=== PATIENT | male | born 1975 | race Two or more races ===

== ENCOUNTER 2024-11-21 03:37 | Inpatient (IN) | payer MEDICAID, SELFPAY ==
[2024-11-21] VITALS (12 sets, daily range): BP systolic 106–127; BP diastolic 78–92; PULSE 59–88; RESP 16–22; TEMP 36.1–36.9; O2SAT 94–99; BMI 29.7
--- NOTE | 2024-11-21 03:45 | PC.NURSE ---
PT TAKEN TO E 2 FOR STAT EKG.
--- NOTE | 2024-11-21 03:46 | EKG_ITS ---
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
--- NOTE | 2024-11-21 03:47 | EDNOTE_ITS ---
ED Chest Pain RME/HPI General Chief Complaint: Chest Pain Stated Complaint: CHEST PAIN Time Seen by Provider: 11/21/24 03:50 Arrival date/time: 11/21/24 03:37 RME / HPI RME / HPI narrative: This section includes all my notes and documentations, including HPI, PE, and ED course. Yusuf Pappas MD HPI: 49 y/o male presents with severe chest pain x 30 minutes. Diaphoretic. No shortness of breath. No obvious cause. Normally healthy with no chronic medications. No leg pain or swelling. No nausea or vomiting. No palpitations. No unusual malaise or fatigue. No other complaints. ROS: All negative except as documented in HPI. Physical Exam: General: Alert and oriented. In severe pain. Eyes: Conjunctivae and lids clear. ENT: No nasal congestion. Neck: Supple. Heart: RRR. Lungs: No respiratory distress. Good air movement. No rhonchi, wheezing, rales. Chest: Palpation doesn't reproduce his pain. Abdomen: Soft and nontender. Skin: Warm and dry. Neuro: Alert and oriented X 3. My interpretation of the EKG: NSR (68 bpm) with no ST-T changes. Aspirin 324 mg given. Nitroglycerin sublingual 0.4 mg given. No improvement noted. Toradol 30 mg IV given. Significant improvement noted. At 6 AM on 11/21/2024, the care of the patient was transferred to Dr. Montano with diagnostic tests pending, including CT scans. Yusuf Pappas MD Related Data Allergies Allergy/AdvReac Type Severity Reaction Status Date / Time NKA* Allergy Uncoded 11/21/24 03:46 Review of Systems Review of Systems Systems Reviewed: All systems reviewed, normal except as documented Past Medical History Surgical History SURGICAL: Positive Knee Sx (LEFT) ED Exam Narrative Physical exam: Refer to HPI Course Course Course Narrative: CXR is ordered for determining the etiology of shortness of breath. Quality Measures none Orders Category Date Time Status CT Screening NOW Care 11/21/24 03:48 Active EKG (ED ONLY) *Do not use* NOW Care 11/21/24 03:46 Completed Saline [Insert IV] NOW Care 11/21/24 03:[address] angio chest abdomen pelvis Stat Exams 11/21/24 03:48 Ordered EKG (ED Only) Stat Exams 11/21/24 03:46 Ordered XR chest 1V portable Stat Exams 11/21/24 03:47 Taken BMP [Basic Metabolic Panel] Stat Lab 11/21/24 04:03 Completed BNP [B-Type Natriuretic Peptide] Stat Lab 11/21/24 04:03 Completed CBC Stat Lab 11/21/24 04:03 Completed D-Dimer Stat Lab 11/21/24 04:03 Completed Free T4 (Free Thyroxine) Stat Lab 11/21/24 04:03 Completed Liver Panel Stat Lab 11/21/24 04:03 Completed Magnesium Stat Lab 11/21/24 04:03 Completed TSH [Thyroid Stimulating Hormone] Stat Lab 11/21/24 04:03 Completed Troponin I Stat Lab 11/21/24 04:03 Completed Aspirin Chew Med 11/21/24 03:46 Discontinued 324 mg PO X1 ONE Ketorolac Inj [Toradol Inj] Med 11/21/24 04:04 Discontinued 30 mg IVP X1 ONE Morphine Inj Med 11/21/24 04:30 Discontinued 2 mg IVP X1 ONE Nitroglycerin [Nitrostat 1/150] Med 11/21/24 03:46 Discontinued 0.4 mg SL X1 ONE Vital Signs Vital signs: Vital Signs Temperature 97.4 F 11/21/24 03:47 Pulse Rate 74 11/21/24 03:47 Respiratory Rate 22 H 11/21/24 03:47 Blood Pressure 124/87 H 11/21/24 03:47 Chest Pain MDM Narrative MDM Narrative:: Scribe Attestation: Sidra Kulkarni am scribing for and in the presence of Dr. Pappas. Provider Notation: Although this document has been carefully reviewed, there may still be some phonetic and other typographical errors.? These errors are purely grammatical due to imperfections in the software program and should not be construed in any way to? compromise the substance of the patient's medical care during this visit. 49 y/o male presents with severe substernal chest pain x 30 minutes. No other complaints. Patient data External records reviewed:: [facility] previous records (No prior ED records available for review.) Clinical information provided by:: patient Social determinants that could affect healthcare access:: none Patient has the following chronic illnesses:: None reported How is presenting disease/condition affected by chronic disease/condition?: no chronic disease Evaluation data The following diagnostics were reviewed and interpreted by me:: lab results, radiology exam(s) and EKG tracing(s) (My interpretation of the EKG: NSR (68 bpm) with no ST-T changes. Yusuf Pappas MD) Lab and/or radiology exams considered but not ordered:: None Interpretation Summary: Complete diagnostic tests are pending. Medications / Prescriptions Medications or Prescriptions considered but not ordered:: None Medication administrations:: Medication Administration History Discontinued Medications Aspirin (Aspirin 81 Mg Chew) 324 mg PO X1 ONE Stop: 11/21/24 03:47 Last Admin: 11/21/24 03:54 Dose: 324 mg Documented By: DIYA Ketorolac Tromethamine (Ketorolac Inj 30 Mg/Ml Vial) 30 mg IVP X1 ONE Stop: 11/21/24 04:05 Last Admin: 11/21/24 04:10 Dose: 30 mg Documented By: DIYA Morphine Sulfate (Morphine Sulf Inj 10 Mg/Ml Vial) 2 mg IVP X1 ONE Stop: 11/21/24 04:31 Nitroglycerin (Nitroglycerin 0.4 Mg Subl Btl #25) 0.4 mg SL X1 ONE Stop: 11/21/24 03:47 Last Admin: 11/21/24 03:54 Dose: 0.4 mg Documented By: DIYA Aspirin, Nitrostat, Toradol, Morphine Consultations Consultation(s) initiated? (list below): No Diagnosis Chest Pain Differential Diagnosis: fracture of rib, pneumothorax, stable angina, unstable angina pectoris, atypical chest pain, st elevation myocardial infarction, costochondritis, chest pain, biliary colic and other (Aortic dissection) Most likely diagnosis given after review of the tests above:: Chest pain of unclear etiology Admission Indicated Admission indicated?: not indicated Explain why admission is indicated or not indicated:: Complete diagnostic tests are pending. Admission Request Was there a request for admission?: No Disposition Plan Disposition Plan: other (specify) (Sign-out to Dr. Montano.) Discharge Plan Prescriptions/Referrals Referrals: No Primary/Family,Physician [Primary Care Provider] - In 1 week Problem List Clinical Impression: Chest pain Patient/Caregiver Discharge Instructions Print Language: Finnish
--- NOTE | 2024-11-21 03:47 | XR_ITS ---
Examination: AP chest single view TECHNIQUE: AP portable upright chest single view Date and time: November 21, 2024 0354 hours INDICATIONS: Onset chest pain today. FINDINGS: Normal heart size. Lungs are clear. The osseous structures are intact IMPRESSION: No active disease
--- NOTE | 2024-11-21 03:48 | XR_ITS ---
Examination: CTA chest, with intravenous contrast. CTA abdomen, with intravenous contrast. CTA pelvis, with intravenous contrast. 2-D sagittal and coronal reconstructions. 3-D reconstructions. Date and time of exam: November 21, 2024 0619 hours INDICATIONS: Chest and severe abdominal pain onset today CTDI vol (mgy) 9.16 DLP (MGycm) 703 Technique: Multiple CTA images, 2.0 mm slice thickness, obtained chest, abdomen, pelvis, with the high-resolution 64 slice scanner. 100 cc Isovue-370 is administered intravenously. Sagittal and coronal 2-D reconstructions are obtained. 3-D reconstructions, angiographic images are obtained. 3-D postprocessing, including vascular maximum intensity projections. Low dose protocols were performed. One or more of the following dose reduction techniques were used; automated exposure control, adjustment of the mA and/or KV according to patient size, use of iterative reconstruction technique. Findings: No thoracic aortic aneurysmal dilatation No pulmonary artery filling defects No paratracheal tracheobronchial or bronchopulmonary adenopathy No pneumonia, pulmonary edema or pleural disease Severe diffuse fatty infiltration throughout the liver No gallstones Spleen not enlarged Lower wall of the esophagus is thickened and there is mucosal thickening in the stomach No pancreatic edema Normal adrenal glands No renal or ureteral calculi, no hydronephrosis Aorta normal size 27 mm fat-containing umbilical hernia Normal appendix Colonic diverticulosis No diverticulitis Urinary bladder intact No prostatomegaly Moderate osteopenia IMPRESSION: Negative for pulmonary artery emboli No pneumonia, pulmonary edema or pleural disease. Significant thickening of the lateral wall of the esophagus, consider reflux esophagitis, esophageal lesion not excluded Prominent gastritis pattern, consider esophagram or upper GI series follow-up Severe diffuse fatty infiltration throughout the liver. Normal appendix No bowel obstruction or diverticulitis
[2024-11-21] MEDS: NITROGLYCERIN 0.4 MG SUBL BTL #25 SL (03:54)
[2024-11-21] MEDS: ASPIRIN 81 MG CHEW 324 MG PO (03:54)
[2024-11-21] MEDS: KETOROLAC INJ 30 MG/ML VIAL IVP (04:10)
[2024-11-21 04:11] LABS: Basophils # (Auto) 0.1 Thou/mm3 (0.0-0.2); Basophils % (Auto) 1 % (0-2.5); Eosinophils # (Auto) 0.1 Thou/mm3 (0.0-0.5); Eosinophils % (Auto) 1 % (0-10); Hematocrit 41.4 % (41.0-53.0); Hemoglobin 14.7 g/dL (13.5-16.0); Immature Granulocytes % (Auto) 0 % (0-0); Immature Granulocytes Auto 0.01 Thou/mm3 (0.00-0.00); Lymphocytes # (Auto) 3.1 Thou/mm3 (1.0-4.8); Lymphocytes % (Auto) 43 % (10-50); Mean Corpuscular HGB Conc 35.5 g/dl (31.0-37.0); Mean Corpuscular Volume 93 fL (80-100); Monocytes # (Auto) 0.7 Thou/mm3 (0.0-0.8); Monocytes % (Auto) 10 % (0-12); Neutrophils # (Auto) 3.3 Thou/mm3 (1.8-7.7); Neutrophils % (Auto) 45 % (37-80); Nucleated Red Blood Cell % 0 /100 WBC (0); Platelet Count 284 Thou/mm3 (140-440); Red Blood Count 4.46 Miln/mm3 (4.50-5.90); White Blood Count 7.3 Thou/mm3 (3.8-10.6)
[2024-11-21 04:29] LABS: Alanine Aminotransferase 151 U/L (10-49); Albumin, Serum 4.7 gm/dL (3.5-5.0); Alkaline Phosphatase 53 U/L (46-116); Anion Gap 14 (7-16); B-Type Natriuretic Peptide < 20 pg/mL (0-100); BUN/Creatinine Ratio 8 Ratio (12-20); Bilirubin,Direct 0.1 mg/dL (0.0-0.3); Bilirubin,Total 0.4 mg/dL (0.3-1.2); Blood Urea Nitrogen 8 mg/dL (9-23); Calcium 9.7 mg/dL (8.3-10.6); Carbon Dioxide 22.4 mMol/L (20.0-31.0); Chloride 104 mMol/L (98-107); Estimated Creatinine Clearance 95.8 mL/min (>60); Free T4 (Free Thyroxine) 1.48 ng/dL (0.89-1.76); Glucose 149 mg/dL (74-106); Magnesium 1.8 mg/dL (1.6-2.6); Osmolality,Calculated 280 (275-295); Potassium 3.6 mMol/L (3.4-5.1); Sodium 140 mMol/L (136-145); Thyroid Stimulating Hormone 1.77 uIU/mL (0.55-4.78); Total Protein 7.3 gm/dL (5.7-8.2); Troponin I < 0.020 ng/mL (0.0-0.045); eGFR > 60 See Note
[2024-11-21 04:31] LABS: D-Dimer < 250 ng/mL (<600)
[2024-11-21] MEDS: MORPHINE SULF INJ 10 MG/ML VIAL 2 MG IVP (05:57)
--- NOTE | 2024-11-21 07:36 | PD.EDADDENDU ---
Emergency Room Addendum Addendum Narrative: 0600: Care assumed from Dr. Pappas, the previous shift emergency physician. Past medical, surgical, social and family history reviewed. Vitals and home medications reviewed. I will assume the care of the patient at this time, pending CT reports and final disposition. Please refer to the emergency department record for history and examination from initial visit.?The following addendum documentation note is intended to reflect any pending information, findings, or radiology results not included in the patient?s initial chart. 0812: CT report findings are suggestive of gastritis/GERD. At this time pending delta troponin. 0825: Delta troponin 2.934 ng/mL. Discussed results with the patient and plan for cardiology consult and admission for further evaluation and treatment. Patient is amenable to admission. Repeat EKG 11/22/2023 @ 08:44 AM. Sinus rhythm, rate 60, mild ST elevation in V2 and V3. 0850: I spoke with mixer and blender Dr. Samano. Discussed patient?s HPI, PMHx, lab and radiology results. Treatment plan was discussed. Agrees to consult. I spoke with resident working with Dr. Lara. Discussed patients PMHx, HPI, ED course, exam findings, labs, and radiology results. The hospitalist agree to accept the patient for admission. RADIOLOGY Ordering Physician: Yusuf Pappas MD Date of Service: 11/21/24 Procedure(s): CT angio chest abdomen pelvis Accession Number(s): [id number] cc: Yusuf Pappas MD; Jose E Zavala MD; NO PRIMARY/FAMILY,PHYSICIAN~ Examination: CTA chest, with intravenous contrast. CTA abdomen, with intravenous contrast. CTA pelvis, with intravenous contrast. 2-D sagittal and coronal reconstructions. 3-D reconstructions. Date and time of exam: November 21, 2024 0619 hours INDICATIONS: Chest and severe abdominal pain onset today CTDI vol (mgy) 9.16 DLP (MGycm) 703 Technique: Multiple CTA images, 2.0 mm slice thickness, obtained chest, abdomen, pelvis, with the high-resolution 64 slice scanner. 100 cc Isovue-370 is administered intravenously. Sagittal and coronal 2-D reconstructions are obtained. 3-D reconstructions, angiographic images are obtained. 3-D postprocessing, including vascular maximum intensity projections. Low dose protocols were performed. One or more of the following dose reduction techniques were used; automated exposure control, adjustment of the mA and/or KV according to patient size, use of iterative reconstruction technique. Findings: No thoracic aortic aneurysmal dilatation No pulmonary artery filling defects No paratracheal tracheobronchial or bronchopulmonary adenopathy No pneumonia, pulmonary edema or pleural disease Severe diffuse fatty infiltration throughout the liver No gallstones Spleen not enlarged Lower wall of the esophagus is thickened and there is mucosal thickening in the stomach No pancreatic edema Normal adrenal glands No renal or ureteral calculi, no hydronephrosis Aorta normal size 27 mm fat-containing umbilical hernia Normal appendix Colonic diverticulosis No diverticulitis Urinary bladder intact No prostatomegaly Moderate osteopenia IMPRESSION: Negative for pulmonary artery emboli No pneumonia, pulmonary edema or pleural disease. Significant thickening of the lateral wall of the esophagus, consider reflux esophagitis, esophageal lesion not excluded Prominent gastritis pattern, consider esophagram or upper GI series follow-up Severe diffuse fatty infiltration throughout the liver. Normal appendix No bowel obstruction or diverticulitis Dictated By:Jose E Zavala MD Signed By:<Electronically signed by Jose E Zavala MD in [place]>11/21/24 0718
[2024-11-21] MEDS: FAMOTIDINE INJ 10 MG/ML VIAL 2 ML 20 MG IVP (08:22)
[2024-11-21 08:23] LABS: Troponin I 2.934 ng/mL (0.0-0.045)
[2024-11-21] MEDS: NITROGLYCERIN OINT 2% 1 INCH PACKET TOP (08:48)
[2024-11-21] MEDS: CLOPIDOGREL BISULFATE 75 MG TABLET 300 MG PO (08:49)
[2024-11-21] MEDS: HEPARIN SOD INJ 5000 UNIT/ML VIAL IV (08:49)
[2024-11-21 09:21] LABS: Partial Thromboplastin Time 25.4 Seconds (22.0-36.0)
[2024-11-21 09:45] LABS: Cardiac Risk Estimate 2.8 RATIO (4.0-6.7); Cholesterol 207 mg/dL (132-200); HDL Cholesterol 74 mg/dL (40-60); LDL Cholesterol,Calculated 118 mg/dL (0-130); Triglycerides 77 mg/dL (30-150)
[2024-11-21] MEDS: PANTOPRAZOLE INJ 40 MG VIAL IVP (10:33)
[2024-11-21] MEDS: HEPARIN SOD INJ 5000 UNIT/ML VIAL 4000 UNIT IV (10:34)
[2024-11-21] MEDS: Heparin/D5w 25K 250 ML Ivpb 25,000 UNIT/250 ML BAG 10 UNIT IV (10:35)
--- NOTE | 2024-11-21 12:00 | ECHO_ITS ---
Transthoracic Echo Report Ht (in): 67 Wt (lb): 190 Exam Location: Echo Lab Status: Inpatient Quantitative Analyst Developer: Angie Flores Indications: Procedure Performed: BP: 113 / 79 HR: 68 Technical Quality: Technically difficult study MEASUREMENTS (Male / Female) Normal Values 2D ECHO LV Diastolic Diameter PLAX 4.7 cm 4.2 - 5.9 / 3.9 - 5.3 cm LV Systolic Diameter PLAX 3.0 cm IVS Diastolic Thickness 0.9 cm 0.6 - 1.0 / 0.6 - 0.9 cm LVPW Diastolic Thickness 0.9 cm 0.6 - 1.0 / 0.6 - 0.9 cm LV Relative Wall Thickness 0.4 LVOT Diameter 1.9 cm LA Systolic Diameter LX 2.7 cm 3.0 - 4.0 / 2.7 - 3.8 cm LA Volume Index 16.4 cm?/m? 16 - 28 cm?/m? M-MODE Aortic Root Diameter MM 2.9 cm LA Systolic Diameter MM 2.7 cm LA Ao Ratio MM 0.9 AV Cusp Separation MM 2.2 cm DOPPLER AV Peak Velocity 96.1 cm/s AV Peak Gradient 3.7 mmHg AV Mean Gradient 2.0 mmHg AV Velocity Time Integral 20.5 cm LVOT Peak Velocity 83.5 cm/s LVOT Peak Gradient 2.8 mmHg LVOT Velocity Time Integral 19.5 cm LVOT Cardiac Index 1840.6 cm?/min?m? AV Area Cont Eq vti 2.7 cm? AV Area Cont Eq pk 2.5 cm? MV Area PHT 4.4 cm? Mitral E Point Velocity 40.3 cm/s Mitral A Point Velocity 75.2 cm/s Mitral E to A Ratio 0.5 LV E' Lateral Velocity 5.8 cm/s Mitral E to LV E' Lateral Ratio 7.0 LV E' Septal Velocity 5.9 cm/s Mitral E to LV E' Septal Ratio 6.9 PV Peak Velocity 89.6 cm/s PV Peak Gradient 3.2 mmHg FINDINGS Left Ventricle Normal left ventricular size, wall thickness, systolic function with no obvious regional wall motion abnormalities. There is grade I diastolic dysfunction of the left ventricle (impaired relaxation pattern). The ejection fraction is visually estimated at 65 %. Right Ventricle The right ventricle is normal in size and systolic function. Left Atrium The left atrium is normal by two-dimensional, color flow and Doppler imaging with no structural abnormalities, no thrombus formation present. Right Atrium The right atrium is normal by two-dimensional imaging, color flow and Doppler imaging with no structural abnormalities, no thrombus formation present. Atrial Septum The interatrial septum appears normal with no evidence of a shunt. Aorta The aorta is normal by two-dimensional, color flow and Doppler interrogation. Mitral Valve The mitral valve is normal by two-dimensional, color flow and Doppler interrogation.trace mitral regurgitation. Aortic Valve The aortic valve is trileaflet and normal by two-dimensional, color flow and Doppler interrogation. There is no significant aortic valve regurgitation. Tricuspid Valve The tricuspid valve is normal by two-dimensional, color flow and Doppler interrogation. There is trace tricuspid valve regurgitation. Pulmonic Valve The pulmonic valve is not well visualized. There is no significant pulmonic valve regurgitation. Vessels The pulmonary artery appears normal. The inferior vena cava pulmonary and hepatic veins appear normal. Pericardium The pericardium is normal by two-dimensional imaging. There is no significant pericardial effusion. CONCLUSIONS Indication: NSTEMI Normal LV size and function. Estimated EF at 65%. Grade I diastolic dysfunction. The RV is normal in size and systolic function. Trace MR and TR. Jacy West (Electronically Signed) Final Date: 21 November 2024 18:19
--- NOTE | 2024-11-21 12:08 | ESHP_ITS ---
Documentation for date of: 11/21/24 [facility] History of Present Illness History of present illness: Mr. Morgan is a 49 year old male with no signicant past medical hisotry presented to the ED complaining of non radiating sharp chest pain. Patient states he woke up around 3 AM this morning with severe sharp chest pain that is not radiating and nonexertional. Patient states nothing makes the pain better or worse, the pain does not resolve with rest. the pian is non reproducible with palpation. The only thing that made the pain significantly better was pain medication he received in the ED. He still has dull pain. Patient denies any shortness of breath or palpitation. Patient states approximately 5 years ago he was having severe shortness of breath and chest pressure which resolved without medications or ER visit. Since then patient has not had any episodes of chest pain, pressure or palpitations. Patient states he works in the [employer] and stays hydrated throughout the day by drinking water constantly. ED course In the ED initial vitals include blood pressure 124/87, heart rate 74, respirations 22, CBC and CMP is unremarkable with exception of glucose 149, ALT 151. Troponins initially <0.020 --> 2.934 Chest x-ray-no active disease CTA-negative for pulmonary artery emboli, no pneumonia, pulmonary edema or pleural disease, significant thickening of the lateral wall of the esophagus, severe diffuse fatty infiltration throughout the liver, prominent gastritis pattern EKG- normla sinus rhythm with HR 60, QTc 426 In the ED patient received aspirin 324 mg p.o. x 1, nitroglycerin 0.4 mg x 1, ketorolac 30 mg x 1, morphine 2 mg x 1, Plavix 300 mg x 1, famotidine 20 mg x 1, lpn Dr. Samano was consulted and patient started on heparin drip PMH: No significant past medical history PSH: Inguinal hernia repair SH: Patient states he drinks 12 cans of beers daily for the past 10 years, denies tobacco smoking and denies any illicit drug use Home meds: Does not take any medications at home Family history: No significant family history other than father had a pacemaker at an old age Allergies: No known allergies Review of Systems Review of Systems Systems Reviewed: All systems reviewed, normal except as documented Exam Vital Signs Temp Pulse Resp BP Pulse Ox O2 Del Method 98.0 F 63 19 119/85 H 98 Room Air 11/21/24 10:11 11/21/24 10:11 11/21/24 10:11 11/21/24 10:11 11/21/24 10:11 11/21/24 10:11 Narrative Exam GENERAL: middle aged [place] Islander speaking male, well groomed, A&Ox3 . Awake, Not in acute distress NEURO: no focal neurological deficits noted HEENT: Atraumatic, Normocephalic. mucous membranes moist. Eyes open, symmetrical, & clear HEART: Normal Heart Sounds LUNGS: Clear to auscultation with no wheezing or crackles. ABDOMEN: soft, non-distended, non-tender, bowel sounds heard, no guarding or rebound tenderness SKIN: No Rash or ecchymoses EXTREMITIES: No edema, tenderness, able to move all 4 extremities, pedal pulses palpated Results: Labs 11/22/24 06:50 11/22/24 06:50 Labs: Short CBC 11/21/24 Range/Units 04:03 WBC 7.3 (3.8-10.6) Thou/mm3 Hgb 14.7 (13.5-16.0) g/dL Hct 41.4 (41.0-53.0) % Plt Count 284 (140-440) Thou/mm3 BMP 11/21/24 04:03 Sodium 140 Potassium 3.6 Chloride 104 Carbon Dioxide 22.4 BUN 8 L Creatinine 1.0 Glucose 149 H Calcium 9.7 Cardiac Enzymes 11/21/24 11/21/24 Range/Units 04:03 07:48 Troponin I < 0.020 2.934 H* D (0.0-0.045) ng/mL Liver Function 11/21/24 Range/Units 04:03 Total Bilirubin 0.4 (0.3-1.2) mg/dL Direct Bilirubin 0.1 (0.0-0.3) mg/dL ALT 151 H (10-49) U/L Alkaline Phosphatase 53 (46-116) U/L Albumin 4.7 (3.5-5.0) gm/dL Quality Measures Quality Measures none Medications Home Medications and Allergies Allergies Allergy/AdvReac Type Severity Reaction Status Date / Time No Known Allergies Allergy Verified 11/22/24 09:20 Visit Medications Heparin Sodium/Dextrose (Heparin In D5w Ivpb) 25,000 unit in 250 mls @ 10 mls/hr IV .Q24H CRISS; Protocol Stop: 12/05/24 09:29 Last Admin: 11/21/24 10:35 Dose: 11.603 units/kg/hr, 10 mls/hr Pantoprazole Sodium (Pantoprazole Inj 40 Mg Vial) 40 mg IVP QDAY CRISS Stop: 12/21/24 08:59 Last Admin: 11/21/24 10:33 Dose: 40 mg Discontinued Medications Aspirin (Aspirin 81 Mg Chew) 324 mg PO X1 ONE Stop: 11/21/24 03:47 Last Admin: 11/21/24 03:54 Dose: 324 mg Clopidogrel Bisulfate (Clopidogrel Bisulfate 75 Mg Tablet) 300 mg PO X1 ONE Stop: 11/21/24 08:31 Last Admin: 11/21/24 08:49 Dose: 300 mg Famotidine (Famotidine Inj 10 Mg/Ml Vial 2 Ml) 20 mg IVP X1 ONE Stop: 11/21/24 08:09 Last Admin: 11/21/24 08:22 Dose: 20 mg Heparin Sodium (Porcine) (Heparin Sod Inj 5000 Unit/Ml Vial) 5,000 unit IV X1 ONE Stop: 11/21/24 08:31 Last Admin: 11/21/24 08:49 Dose: 5,000 unit Heparin Sodium (Porcine) (Heparin Sod Inj 5000 Unit/Ml Vial) 4,000 unit IV X1 ONE; Protocol Stop: 11/21/24 08:51 Last Admin: 11/21/24 10:34 Dose: 4,000 unit Heparin Sodium (Porcine) (Heparin Sod Inj 5000 Unit/Ml Vial) 2,600 unit 30 unit/kg (2600 unit) IV X1 ONE; Protocol Stop: 11/21/24 08:51 Last Admin: 11/21/24 10:02 Dose: Not Given Heparin Sodium/Dextrose (Heparin In D5w Ivpb) 25,000 unit in 250 mls @ 10.342 mls/hr IV .Q24H CRISS; Protocol Stop: 12/05/24 09:29 Last Admin: 11/21/24 10:03 Dose: Not Given Ketorolac Tromethamine (Ketorolac Inj 30 Mg/Ml Vial) 30 mg IVP X1 ONE Stop: 11/21/24 04:05 Last Admin: 11/21/24 04:10 Dose: 30 mg Morphine Sulfate (Morphine Sulf Inj 10 Mg/Ml Vial) 2 mg IVP X1 ONE Stop: 11/21/24 04:31 Last Admin: 11/21/24 05:57 Dose: 2 mg Nitroglycerin (Nitroglycerin 0.4 Mg Subl Btl #25) 0.4 mg SL X1 ONE Stop: 11/21/24 03:47 Last Admin: 11/21/24 03:54 Dose: 0.4 mg Nitroglycerin (Nitroglycerin Oint 2% 1 Inch Packet) 1 inch TOP X1 ONE Stop: 11/21/24 08:31 Last Admin: 11/21/24 08:48 Dose: 1 inch Assessment & Plan Plan Mr. Morgan is a 49 year old male with no significant past medical history presented to the ED complaining of non radiating sharp chest pain. Patient states he woke up around 3 AM this morning with severe sharp chest pain that is not radiating and non-exertional. Pt is admitted for ACS work up. #Chest pain #Elevated troponins #ACS work up DDx: NSTEMI type l vs. type ll , GERD -On admission pt was complaining of non radiating sharp chest pain that woke him up from sleep. The pain is located to left sided check, non radiating, non exertional, does not improve with rest. Pt denies nay SOB or palpitations. -Troponins initially <0.020 --> 2.934 --> 2.782 -EKG: sinus rhythm with no ST or T wave changes, HR 60, QTc 426 -CTA negative for PE , significant thickening of the lateral wall of the esophagus, prominent gastritis pattern Plan: -In the ED pt received aspirin 324 mg p.o. x 1, nitroglycerin 0.4 mg x 1, ketorolac 30 mg x 1, morphine 2 mg x 1, Plavix 300 mg x 1, famotidine 20 mg x 1 -Heparin drip started as per ACS protocol -Trend troponins until downtrending -Shearing Shed Hand Dr. Samano consulted, appreciate recommendations -Echo ordered #Transaminitis -Pt endorses to drinking 12 pack of beer daily for the past 10 years -No signs of alcohol withdrawal noted -Currently CIWA protocol not ordered -CTA showed severe diffuse fatty infiltration throughout the liver -AST (uncollected due to testing shortage) ALT 151 -Pt is counseled regarding abstinence from alcohol #Hyperlipidemia -Cholesterol 207, LDL 118, HDL 74, triglycerides 77 -Started pt. on atorvastatin Health Maintenance Disposition: Telemetry for ACS work up DVT Prophylaxis:Pt is on heparin drip as per ACS protocol GI Prophylaxis: Pantoprozol-40 IV Qday Diet: NPO Lines: Peripheral lines Code status: Full Assessment and plan discussed with my attending physician Dr. Marco Oliveira (PGY-1)- Internal medicine resident Attending Provider Attestation/Addendum I attest that I was physically present for the evaluation, physical examination, lab and imaging review of the patient with the residents. I discussed the case with the residents and agree with the findings and plans of care as documented above. Patient is a 49 years old male with no known past medical history who presented to the ED with complaint of chest pain stated that his chest pain was sharp, nonradiating and not related to exertion. He did not notice any exacerbating or relieving factors.. Denies any shortness of breath, palpitations, fever, chills, cough. Vital signs are stable. CBC and CMP are nonconcerning except for ALT of 151. Troponin initially was negative but later on went up to 2.394. EKG showed no ST changes and normal sinus rhythm. CTA chest was done, which was negative for PE, pneumonia or any other lung disease. Also showed significant thickening of lateral wall of esophagus, fatty infiltration of liver and prominent gas pattern. Patient received aspirin, nitroglycerin, Plavix, morphine in the ED. Cardiology was contacted by ED who recommended starting patient on heparin drip and admission for NSTEMI. After examination of the patient and review of the clinical data I feel that this patient needs admission to the hospital for further treatment/evaluation of chest pain, NSTEMI. Patient has been started on heparin drip, received aspirin and Plavix. We will also start statin and trend his troponin. Echocardiography has been ordered, cardiology consulted, patient planned for cardiac catheterization tomorrow. We will keep him n.p.o. after midnight. Carmelo Lara MD
[2024-11-21 13:13] LABS: Troponin I 2.782 ng/mL (0.0-0.045)
[2024-11-21 14:02] LABS: Glucose Estimated Average 103 mg/dL (80-131); Hemoglobin A1C 5.2 % Hgb (4.8-6.0)
[2024-11-21 17:08] LABS: Partial Thromboplastin Time 67.2 Seconds (22.0-36.0)
[2024-11-21] MEDS: ATORVASTATIN CALCIUM 20 MG TABLET 40 MG PO (21:10)
[2024-11-21 22:54] LABS: Partial Thromboplastin Time 42.7 Seconds (22.0-36.0)
[2024-11-22] VITALS (21 sets, daily range): BP systolic 96–156; BP diastolic 66–95; PULSE 55–74; RESP 14–20; TEMP 36.1–37.2; O2SAT 91–100
--- NOTE | 2024-11-22 00:14 | ESCONSULT_ITS ---
RE: JOHNIE REYNAGA : 1975 DATE OF CONSULTATION: 11/21/2024 CONSULTING PHYSICIANS: Hospitalist physician, emergency room physician. REASON FOR CONSULTATION: Evaluation of chest pain, acute non-ST segment elevation myocardial infarction. The patient is a 49-year-old male who is Peruvian speaking with a past medical history of no major medical problems. 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 The pain is quite typical substernal chest pain. Initially, troponin was 2.9. The patient for some reason, for no clear indication, underwent a CTA of the chest, abdomen and pelvis, possibly inappropriate indication since he has no shortness of breath, no abdominal pain or any other symptoms; however, the patient did have a troponin level repeated about 4 hours after the procedure that showed troponin from 0.02 t0 2.9. The patient clearly has classic chest pain and troponin elevation suggestive of acute myocardial infarction. EKG is unremarkable. He is feeling a little better by this afternoon. He does not complain of any further chest pain or shortness of breath. Initial EKG is normal. Subsequently, EKG showed nonspecific ST changes. So far, rest of the workup is negative except for enzyme elevation. ALLERGIES: NONE. MEDICATIONS: He takes famotidine for GERD, otherwise none. REVIEW OF SYSTEMS: CARDIOVASCULAR: No chest pain or shortness of breath. He had classic chest pain on the day of admission. GASTROINTESTINAL: No history of nausea or vomiting. GENITOURINARY: No history of frequency or dysuria. PHYSICAL EXAMINATION: GENERAL: Well-nourished, pleasant male, alert, awake, in no acute distress. VITAL SIGNS: Blood pressure 120/79, pulse 63. HEENT: Head is atraumatic, normocephalic. Eyes normal. ENT normal. NECK: Supple. No JVD. Carotid pulse felt, but no bruit. CHEST: Symmetrical. LUNGS: Clear. HEART: Sounds regular. S4 gallop heard. ABDOMEN: Thin and soft. EXTREMITIES: No edema. GENITOURINARY AND RECTAL: Not performed. NEUROLOGIC: Normal. Electrocardiogram showed normal sinus rhythm and nonspecific changes. There are some T wave changes in pericardial lead. IMPRESSION/ASSESSMENT: 1. Acute non-ST segment elevation myocardial infarction with troponin elevation. 2. Chest pain secondary to myocardial infarction. 3. Hypercholesterolemia. RECOMMENDATIONS: Continue aspirin, Plavix and heparin and also continue statin therapy and monitor blood pressure closely. If blood pressure allows, we can give him some beta blockers as well. We will schedule the patient for coronary angiogram and cardiac catheterization possibly tomorrow for assessment of coronary artery disease and CAD. DT: 23:40:36 TT: 00:04:00 Ref: [id number] - TID: [id number] MTDD
[2024-11-22] MEDS: HEPARIN SOD INJ 5000 UNIT/ML VIAL 2000 UNIT IV (00:42)
[2024-11-22 07:29] LABS: Basophils # (Auto) 0.1 Thou/mm3 (0.0-0.2); Basophils % (Auto) 1 % (0-2.5); Eosinophils # (Auto) 0.1 Thou/mm3 (0.0-0.5); Eosinophils % (Auto) 1 % (0-10); Hematocrit 38.1 % (41.0-53.0); Hemoglobin 13.5 g/dL (13.5-16.0); Immature Granulocytes % (Auto) 0 % (0-0); Immature Granulocytes Auto 0.01 Thou/mm3 (0.00-0.00); Lymphocytes # (Auto) 1.9 Thou/mm3 (1.0-4.8); Lymphocytes % (Auto) 34 % (10-50); Mean Corpuscular HGB Conc 35.4 g/dl (31.0-37.0); Mean Corpuscular Hemoglobin 32.8 pg (25.0-35.0); Mean Corpuscular Volume 93 fL (80-100); Monocytes # (Auto) 0.5 Thou/mm3 (0.0-0.8); Monocytes % (Auto) 8 % (0-12); Neutrophils # (Auto) 3.1 Thou/mm3 (1.8-7.7); Neutrophils % (Auto) 55 % (37-80); Nucleated Red Blood Cell % 0 /100 WBC (0); Platelet Count 229 Thou/mm3 (140-440); RDW Standard Deviation 43.8 fL (35.1-43.9); Red Blood Count 4.11 Miln/mm3 (4.50-5.90); White Blood Count 5.6 Thou/mm3 (3.8-10.6)
[2024-11-22 07:44] LABS: Anion Gap 12 (7-16); BUN/Creatinine Ratio 13 Ratio (12-20); Blood Urea Nitrogen 12 mg/dL (9-23); Calcium 9.2 mg/dL (8.3-10.6); Carbon Dioxide 25.3 mMol/L (20.0-31.0); Chloride 104 mMol/L (98-107); Creatinine (Component) 0.9 mg/dL (0.6-1.3); Estimated Creatinine Clearance 104.6 mL/min (>60); Glucose 103 mg/dL (74-106); Osmolality,Calculated 280 (275-295); Sodium 141 mMol/L (136-145); Thyroid Stimulating Hormone 2.38 uIU/mL (0.55-4.78); eGFR > 60 See Note
[2024-11-22 09:07] LABS: Partial Thromboplastin Time 52.7 Seconds (22.0-36.0); Prothrombin Time 11.3 Seconds (9.0-12.2)
[2024-11-22] MEDS: SODIUM CHLORIDE 0.45 % 500 ML 100 ML IV (09:59)
[2024-11-22] MEDS: HYDROcodone/APAP 5/325 TABLET 1 TAB PO (11:05)
--- NOTE | 2024-11-22 12:38 | PC.NURSE ---
0952 patient is awake, alert, breathing unlabored, S/P C , PCI by Dr. Samano. TR band present to right wrist, no bleeding or hematoma noted, Report received from Myles HERCULES, patient to recover in geophysical laboratory supervisor until TR band is removed. Heparin drip discontinued. Aspirin due tomorrow, Brilinta due tonight. 1054 patient having pain 4/10, norco PO ordered per geophysical laboratory supervisor protocol 1105 patient ate jello, norco PO given 1115 patient having pain 2/10 1130 patient states he is having no more pain 1155 1ml air removed from TR band since hemsotasis time 1150.
--- NOTE | 2024-11-22 12:53 | ESPR_ITS ---
Documentation for date of: 11/22/24 Subjective Subjective Interval history: No acute overnight events reported. Patient is seen and examined during cardiac cath. Patient is complaining of dull chest pain 6 out of 10, Pt is not in acute distress, denies shortness of breath or palpitations. will contact the aquatic laborer and EKGs ordered. Patient is given morphine and nitroglycerin. Patient is status post cardiac cath underwent 1 stent placed in the LAD. patient is started on aspirin, Brilinta and statin as per cardiology's recommendation. Radial pulses strong . will continue to follow the patient closely and monitor his symptoms. Exam Vital Signs Temp Pulse Resp BP Pulse Ox O2 Del Method O2 Flow Rate 97.2 F 61 17 130/88 H 96 Room Air 2 11/22/24 12:00 11/22/24 12:45 11/22/24 12:45 11/22/24 12:45 11/22/24 12:45 11/22/24 12:45 11/21/24 13:45 Narrative Exam GENERAL: middle aged Bhutanese speaking male, well groomed, A&Ox3 . Awake, Not in acute distress NEURO: no focal neurological deficits noted HEENT: Atraumatic, Normocephalic. mucous membranes moist. Eyes open, symmetrical, & clear HEART: Normal Heart Sounds LUNGS: Clear to auscultation with no wheezing or crackles. ABDOMEN: soft, non-distended, non-tender, bowel sounds heard, no guarding or rebound tenderness SKIN: No Rash or ecchymoses EXTREMITIES: No edema, tenderness, able to move all 4 extremities, pedal pulses palpated Objective Labs 11/22/24 06:50 11/22/24 06:50 Labs: Laboratory Results - last 24 hr 11/21/24 11/21/24 11/21/24 04:03 12:20 16:25 WBC RBC Hgb Hct MCV MCH MCHC RDW Std Deviation Plt Count Neut % (Auto) Lymph % (Auto) [place] % (Auto) Eos % (Auto) Baso % (Auto) Neut # (Auto) Lymph # (Auto) [place] # (Auto) Eos # (Auto) Baso # (Auto) Immature Gran # (Auto) Absolute Nucleated RBC Immature Gran % Nucleated RBC % PT INR APTT 67.2 H D Sodium Potassium Chloride Carbon Dioxide Anion Gap BUN Creatinine Estim Creat Clear Calc eGFR BUN/Creatinine Ratio Glucose Estimated Ave Glu mg/dL 103 Hemoglobin A1c 5.2 Calculated Osmolality Calcium Phosphorus Magnesium Troponin I 2.782 H* 1.140 H* D TSH 11/21/24 11/22/24 22:31 06:50 WBC 5.6 RBC 4.11 L Hgb 13.5 Hct 38.1 L MCV 93 MCH 32.8 MCHC 35.4 RDW Std Deviation 43.8 Plt Count 229 D Neut % (Auto) 55 Lymph % (Auto) 34 [place] % (Auto) 8 Eos % (Auto) 1 Baso % (Auto) 1 Neut # (Auto) 3.1 Lymph # (Auto) 1.9 [place] # (Auto) 0.5 Eos # (Auto) 0.1 Baso # (Auto) 0.1 Immature Gran # (Auto) 0.01 H Absolute Nucleated RBC 0.00 Immature Gran % 0 Nucleated RBC % 0 PT 11.3 INR 1.0 APTT 42.7 H D 52.7 H D Sodium 141 Potassium 4.0 Chloride 104 Carbon Dioxide 25.3 Anion Gap 12 BUN 12 Creatinine 0.9 Estim Creat Clear Calc 104.6 eGFR > 60 BUN/Creatinine Ratio [address] Glu mg/dL Hemoglobin A1c Calculated Osmolality 280 Calcium 9.2 Phosphorus 4.0 Magnesium 2.0 Troponin I TSH 2.38 Quality Measures Quality Measures none Assessment & Plan Assessment Current Active Medications: Generic Name Dose Route Start Last Admin Trade Name Freq PRN Reason Stop Dose Admin Aspirin 81 mg 11/23/24 09:00 Aspirin Ec 81 Mg Tabec PO 12/23/24 08:59 QDAY [facility] Atorvastatin Calcium 80 mg 11/22/24 21:00 Atorvastatin Calcium 20 Mg Tablet PO 12/22/24 20:59 HS [facility] Sodium Chloride 500 mls @ 100 mls/hr 11/22/24 09:43 11/22/24 09:59 Ns 0.45% IV 11/22/24 14:42 100 mls/hr .Q5H ONE Administration Nitroglycerin 0.4 mg 11/22/24 10:55 Nitroglycerin 0.4 Mg Subl Btl #25 SL Q5MIN PRN CHEST PAIN Ondansetron HCl 4 mg 11/22/24 10:55 Ondansetron Inj 2 Mg/Ml Inj 2 Ml IVP 12/22/24 10:54 Q6HR PRN NAUSEA OR VOMITING Pantoprazole Sodium 40 mg 11/21/24 09:00 11/21/24 10:33 Pantoprazole Inj 40 Mg Vial IVP 12/21/24 08:59 40 mg QDAY CRISS Administration Ticagrelor 90 mg 11/22/24 21:00 Ticagrelor 90 Mg Tablet PO 12/22/24 20:59 BID CRISS Plan Mr. Morgan is a 49 year old male with no significant past medical history presented to the ED complaining of non radiating sharp chest pain. Patient states he woke up around 3 AM this morning with severe sharp chest pain that is not radiating and non-exertional. Pt is admitted for ACS work up. #Chest pain 2/2 NSTEMI #CAD s/p 1 stent placed in the LAD #Elevated troponins DDx: NSTEMI type l vs. type ll , GERD -On admission pt was complaining of non radiating sharp chest pain that woke him up from sleep. The pain is located to left sided check, non radiating, non exertional, does not improve with rest. Pt denies nay SOB or palpitations. -Troponins initially <0.020 --> 2.934 --> 2.782 -EKG: sinus rhythm with no ST or T wave changes, HR 60, QTc 426 -CTA negative for PE , significant thickening of the lateral wall of the esophagus, prominent gastritis pattern -Echo done 11/21 Plan: -In the ED pt received aspirin 324 mg p.o. x 1, nitroglycerin 0.4 mg x 1, ketorolac 30 mg x 1, morphine 2 mg x 1, Plavix 300 mg x 1, famotidine 20 mg x 1 -Heparin drip started as per ACS protocol -Trend troponins until downtrending -Chief Security Officer Dr. Samano consulted, appreciate recommendations -Patient underwent cardiac catheterization on 11/22/2024 and 1 stent was placed in the LAD. -Patient is started on Brilinta and aspirin as per cardiology recommendation #Transaminitis -Pt endorses to drinking 12 pack of beer daily for the past 10 years -No signs of alcohol withdrawal noted -Currently CIWA protocol not ordered -CTA showed severe diffuse fatty infiltration throughout the liver -AST (uncollected due to testing shortage) ALT 151 -Pt is counseled regarding abstinence from alcohol #Hyperlipidemia -Cholesterol 207, LDL 118, HDL 74, triglycerides 77 -Started pt. on atorvastatin Health Maintenance Disposition: Telemetry for ACS work up DVT Prophylaxis:Pt is on heparin drip as per ACS protocol GI Prophylaxis: Pantoprozol-40 IV Qday Diet: Cardiac diet Lines: Peripheral lines Code status: Full Assessment and plan discussed with my attending physician Dr. Marco Oliveira (PGY-1)- Internal medicine resident Attending Provider Attestation/Addendum I attest that I was physically present for the evaluation, physical examination, lab and imaging review of the patient with the residents. I discussed the case with the residents and agree with the findings and plans of care as documented above. At bedside today, patient states he is having mild chest pain. He underwent cardiac catheterization with placement of stent in LAD with cardiology today. Repeat EKG did not show any ST elevation. We will continue to monitor closely. Continues to be on aspirin, statin, Brilinta. Started on cardiac diet. Carmelo Lara MD
--- NOTE | 2024-11-22 13:00 | PC.NURSE ---
1250 TR band removed, no bleeding or hematoma noted to right wrist, site covered with tegaderm and coban. 1300 patient is awake, alert, breathing unlabored, dressing to right wrist dry with no bleeding, patient able to tolerate food tray with no nausea or vomiting, report given to [facility] HERCULES, patient transferred back to room 269 accompanied by family member
[2024-11-22] MEDS: PANTOPRAZOLE 40 MG TABLET PO (13:33)
--- NOTE | 2024-11-22 15:14 | EKG_ITS ---
[facility] Test Date: 2024-11-22 Pat Name: JOHNIE REYNAGA [facility] Gender: Male Director Center: [facility] : 1975 Requested By: Sallie Oliveira Order Number: [id number] Reading MD: Sallie Oliveira Measurements Intervals [place] Rate: 59 P: 45 NM: 140 QRS: 7 QRSD: 92 T: 114 QT: 494 QTc: 491 Interpretive Statements SINUS BRADYCARDIA WITH OCCASIONAL VENTRICULAR PREMATURE COMPLEXES POSSIBLE LEFT ATRIAL ENLARGEMENT MODERATE T-WAVE ABNORMALITY, CONSIDER ANTEROLATERAL ISCHEMIA Compared to ECG 11/21/2024 08:44:24 Ventricular premature complex(es) now present T-wave abnormality now present Possible ischemia now present Sinus rhythm no longer present /store/S0/[id number]/[id number].pdf
[2024-11-22] MEDS: NITROGLYCERIN 0.4 MG SUBL BTL #25 SL (15:36)
[2024-11-22] MEDS: MORPHINE SULF INJ 10 MG/ML VIAL 4 MG IVP (16:00)
--- NOTE | 2024-11-22 16:18 | PC.SS ---
SS met with patient regarding his d/c plan. Pt is alert/oriented. Pt was admitted for Chest Pain. Pt confirmed demographic and contact information is correct on facesheet. Pt resides with and kids. Pt ambulates independently without assistance or DME. Pt is ok with all ADLs. Patient?s pharmacy of choice is [facility] on [address]. Pt named his , Joseph Morgan medical decision maker if she is unable. Patient?s choice is to return home upon d/c. Pt states he is not diabetic and is not on dialysis. Pt does not have PCP. SS offered verbal choices to follow up with PCP to [facility]. states pt will establish PCP at [facility] and she will schedule his appointment. will provide transportation at d.c. D/C plan: Return home Next of Kin: Joseph Morgan, , phone# [phone] PCP: Will establish at [facility] Address: Correct on facesheet
--- NOTE | 2024-11-22 18:49 | ESOP_ITS ---
RE: JOHNIE REYNAGA : 1975 DATE OF OPERATION: 11/22/2024 PROCEDURE PERFORMED: 1. Emergency diagnostic left heart cardiac catheterization, selective coronary angiogram, left ventricular angiogram, CPT 85875. 2. PCI, PTCA stent placement of proximal left anterior descending artery, replacement of regulating stent 3.5 x 26 mm [place] Medtronic stent. Preprocedure stenosis 90%, postprocedure 0%. CASH flow procedure 3, postprocedure 3, CPT 87257. 3. Conscious sedation 1 hour duration, 4 ultrasound-guided access of radial artery. DIAGNOSES: Acute non-ST segment elevation of myocardial infarction. Chief complaint of chest pain. HISTORY OF INDICATION: The patient is a 49-year-old male with no medical problems. Came to the hospital overnight, presented on 11/21 with severe chest pain, found to have initial EKG normal. Subsequent enzymes were abnormal. Troponin level was increased from normal 0.02 up to 2.9 and came down 1.1. The patient clearly had acute myocardial infarction and NSTEMI with recurrent chest pain. Aspirin, heparin was continued. Emergency coronary angiogram, cardiac catheterization recommended for further assessment and TEACHING AIDE. DESCRIPTION OF PROCEDURE: The patient brought to cardiac catheterization lab, he was given 2 mg Versed, 100 mcg of fentanyl for conscious sedation. Right radial approach taken, radial artery cannulated with micropuncture technique, 6-Romansh glide sheath introduced. Selective diagnostic left heart cardiac catheterization, coronary angiogram, left ventricular angiogram performed with TIG-4 diagnostic catheter, it showed following findings: Right coronary artery large and dominant showed no significant stenosis. PDA and PL branch is normal. Left coronary system: Left main coronary artery is normal. Left anterior descending artery showed discrete but long lesion 90% initially, but subsequently 60% long lesion after the fairly large ramus intermedius culprit lesion. Circumflex artery is normal. Left ventricular pressure 116/10. Aortic pressure 116/80. No gradient across the aortic valve. Following diagnostic procedure, the patient was given heparin. In addition to radial cocktail, additional dose of heparin was given and PCO was then performed. A 6-Romansh JL 3.5 guiding catheter was used to cannulate the left main coronary artery and 0.014 runthrough guidewire was used to cross the lesion successfully. Direct stent placement was performed using 3.5 x 26 mm Medtronic Shaji drug-eluting stent deployed post stent deployment angioplasty. Proximal portion was performed with 4 mm NC balloon with excellent angiographic velocity, CASH 3 flow improved to 3 and no residual stenosis. TR band Angiographic result . The patient was transferred to telemetry unit in stable condition. SUMMARY OF FINDINGS: Single-vessel coronary artery disease with evidence of 90% stenosis of the proximal left anterior descending artery, underwent successful PCI stent placement with drug-eluting stent 3.5 x 26 mm [place] Medtronic stent deployed with 4 mm post dilation, excellent result. CASH flow was improved. CASH flow was 3 pre and post. Preprocedure stenosis of 90%, postprocedure 0%. Complication none. The patient had some discomfort in the chest, possibly from the stent itself, but EKG showed nonsurgical changes later on. Otherwise, no issues. The patient will continue aspirin and Brilinta and standard guideline-directed medical management and probably keep him for one more day as tolerated. DT: 18:01:43 TT: 18:39:00 Ref: [id number] - TID: [id number] MTDD
[2024-11-22] MEDS: TICAGRELOR 90 MG TABLET PO (20:08)
[2024-11-22] MEDS: ATORVASTATIN CALCIUM 20 MG TABLET 80 MG PO (20:08)
--- NOTE | 2024-11-22 22:36 | ESPR_ITS ---
RE: DANDRE MORGAN : 1975 DATE OF SERVICE: 11/22/2024 Dandre Morgan is admitted to the hospital with acute non-ST segment elevation myocardial infarction, LAD stent placement. Post procedure, he was upstairs and was having some aching sensation at the site of precordial region, lasted several minutes and continuous achy sensation. EKG repeated showed some T-wave changes in precordial leads, but no ST elevation. The angiogram reviewed showed an excellent result, not concerned about stent thrombosis, no ST elevation. PHYSICAL EXAMINATION: Vital Signs: Blood pressure 130/80, pulse 68. Neck: Supple. Lungs: Decreased breath sounds. No rales or rhonchi. Heart: S1, S2 regular. No gallops. Abdomen: Thin and soft. IMPRESSION/ASSESSMENT: 1. Coronary artery disease, status post stent placement. 2. Acute non-ST segment elevation myocardial infarction. 3. Status post stent placement in the left anterior descending artery. RECOMMENDATIONS: Continue aspirin and Brilinta combination and also atorvastatin 80 mg daily and since the blood pressure is stable, we will start him on low-dose beta-pietro as well, metoprolol 25 mg daily. DT: 21:41:49 TT: 22:35:00 Ref: [id number] - TID: [id number]
[2024-11-23] VITALS: BP 127/80; PULSE 63; PULSE 66; RESP 19; TEMP 36.7; O2SAT 98
[2024-11-23 04:00] VITALS: BP 127/79; PULSE 63; PULSE 66; RESP 16; TEMP 36.8; O2SAT 98
[2024-11-23 06:00] VITALS: BMI 28.9
[2024-11-23 06:31] LABS: Basophils % (Auto) 0 % (0-2.5); Eosinophils # (Auto) 0.1 Thou/mm3 (0.0-0.5); Eosinophils % (Auto) 1 % (0-10); Hematocrit 40.3 % (41.0-53.0); Hemoglobin 14.2 g/dL (13.5-16.0); Immature Granulocytes % (Auto) 0 % (0-0); Immature Granulocytes Auto 0.02 Thou/mm3 (0.00-0.00); Lymphocytes # (Auto) 1.3 Thou/mm3 (1.0-4.8); Lymphocytes % (Auto) 20 % (10-50); Mean Corpuscular HGB Conc 35.2 g/dl (31.0-37.0); Mean Corpuscular Hemoglobin 32.7 pg (25.0-35.0); Mean Corpuscular Volume 93 fL (80-100); Monocytes # (Auto) 0.7 Thou/mm3 (0.0-0.8); Monocytes % (Auto) 10 % (0-12); Neutrophils # (Auto) 4.7 Thou/mm3 (1.8-7.7); Neutrophils % (Auto) 69 % (37-80); Nucleated Red Blood Cell % 0 /100 WBC (0); Platelet Count 241 Thou/mm3 (140-440); RDW Standard Deviation 42.7 fL (35.1-43.9); Red Blood Count 4.34 Miln/mm3 (4.50-5.90); White Blood Count 6.8 Thou/mm3 (3.8-10.6)
[2024-11-23 06:40] LABS: Partial Thromboplastin Time 25.4 Seconds (22.0-36.0)
[2024-11-23 06:48] LABS: Anion Gap 11 (7-16); BUN/Creatinine Ratio 10 Ratio (12-20); Blood Urea Nitrogen 8 mg/dL (9-23); Calcium 9.1 mg/dL (8.3-10.6); Carbon Dioxide 24.4 mMol/L (20.0-31.0); Chloride 106 mMol/L (98-107); Creatinine (Component) 0.8 mg/dL (0.6-1.3); Estimated Creatinine Clearance 118.1 mL/min (>60); Glucose 102 mg/dL (74-106); Magnesium 1.9 mg/dL (1.6-2.6); Osmolality,Calculated 279 (275-295); Phosphorous 3.7 mg/dL (2.4-5.1); Potassium 4.3 mMol/L (3.4-5.1); Sodium 141 mMol/L (136-145); eGFR > 60 See Note
[2024-11-23 08:00] VITALS: BP 115/90; PULSE 66; PULSE 75; RESP 19; TEMP 36.2; O2SAT 94
[2024-11-23] MEDS: TICAGRELOR 90 MG TABLET PO (08:48)
[2024-11-23] MEDS: PANTOPRAZOLE 40 MG TABLET PO (08:48)
[2024-11-23 08:49] VITALS: BP 115/90; PULSE 66
[2024-11-23] MEDS: METOPROLOL SUCCINATE XL 25 MG TABCR PO (08:49)
[2024-11-23] MEDS: ASPIRIN EC 81 MG TABEC PO (08:49)
--- NOTE | 2024-11-23 10:10 | PC.SS ---
Follow up note: d/c home today.
[2024-11-23 12:00] VITALS: BP 122/71; PULSE 67; RESP 17; TEMP 36.3; O2SAT 98
--- NOTE | 2024-11-23 16:35 | ESDS_ITS ---
<Statement entered by Sanaz Santos MD - 12/02/24 15:03> I reviewed above note and agree with findings and plans. I have also personally examined the patient with medicine team and went over assessment and plan with medical team including editing intern and resident physician. Planned Discharge Date 11/23/24 DS: Providers Provider Date of admission: 11/21/24 08:50 Primary care physician: Physician No Primary/Family Admitting Provider: Carmelo Lara MD Attending Provider on Admission: Sanaz Santos MD Consults: 11/21/24 08:42 Consult to Cardiology Stat Comment: Consulting Provider: Jonel Samano Attending Provider on DC: Sallie Oliveira MD Discharging Provider: Sallie Oliveira MD DS: Diagnosis Problem List Completed Was Problem List Reviewed/Reconciled?: Yes Hospital Course Hospital Course Hospital course: Mr. Morgan is a 49-year-old male with no significant history of type II [facility] ED on 11/21/2024 complaining of substernal chest pain and elevated troponins. Patient's troponins peaked at 2.934 and EKG was sinus rhythm with no ST or T wave changes. CTA was negative for pulmonary embolism. Ophthalmic Dispenser Dr. Samano was consulted patient underwent cardiac catheterization and 1 stent was placed in the left LAD and patient was started on DAPT. Patient will continue dual antiplatelet therapy including Brilinta and aspirin for 12 months. Patient will also need to follow-up with installers mechanical Dr. Samano after discharge. During hospitalization was found to have hyperlipidemia statin was started. Patient is also educated on the use of antiplatelet therapy can increase his risk of bleeding therefore patient must be very careful with injuries and falls. Patient is also started on pantoprazole to prevent gastric ulcers which can bleed while on DAPT. Patient is advised if his symptoms return or worsen to promptly return to the ED. Discharge Recommendations -Follow up outpatient with your primary care within 1 week after discharge, if you do not have one you can come seen us at the [facility] by calling [phone] -Follow up with installers mechanical Dr. Samano within 1 week after discharge -You have been prescribed blood thinners so you have to be very careful with falls, if you have a fall and hit your head please go to ED immediately. -Please stop drinking alcohol completely -You have been prescribed pantoprazole to prevent gastric ulcers which can causes bleeding, please take the medication 30 minutes before eating -Return to the ED or call EMS if symptoms return and/or worsen Hospitalization Diagnosis #Chest pain 2/2 NSTEMI #CAD s/p 1 stent placed in the LAD #Elevated troponins #Transaminitis #Hyperlipidemia Assessment and plan discussed with my attending physician Dr. Danielle Oliveira (PGY-1)- Internal medicine resident Time Spent with Patient Time attestation: Total time spent providing and/or coordinating discharge services: Time spent: Greater than 30 minutes Exam Vital Signs Temp Pulse Resp BP Pulse Ox O2 Del Method O2 Flow Rate 97.4 F 67 17 122/71 98 Room Air 2 11/23/24 12:00 11/23/24 12:00 11/23/24 12:00 11/23/24 12:00 11/23/24 12:00 11/23/24 12:00 11/21/24 13:45 Narrative Exam GENERAL: middle aged Slovenian speaking male, well groomed, A&Ox3 . Awake, Not in acute distress NEURO: no focal neurological deficits noted HEENT: Atraumatic, Normocephalic. mucous membranes moist. Eyes open, symmetrical, & clear HEART: Normal Heart Sounds LUNGS: Clear to auscultation with no wheezing or crackles. ABDOMEN: soft, non-distended, non-tender, bowel sounds heard, no guarding or rebound tenderness SKIN: No Rash or ecchymoses EXTREMITIES: No edema, tenderness, able to move all 4 extremities, pedal pulses palpated Discharge Plan Plan Patient Disposition: HOME (Self Care) Patient condition on transfer: Stable Care Plan Goals: -Follow up outpatient with your primary care within 1 week after discharge, if you do not have one you can come seen us at the [facility] by calling [phone] -Follow up with installers mechanical Dr. Samano within 1 week after discharge -You have been prescribed blood thinners so you have to be very careful with falls, if you have a fall and hit your head please go to ED immediately. -Please stop drinking alcohol completely -You have been prescribed pantoprazole to prevent gastric ulcers which can causes bleeding, please take the medication 30 minutes before eating -Return to the ED or call EMS if symptoms return and/or worsen - Realice tommy gladis de seguimiento ambulatorio con diaz m?dico de cabecera dentro de tommy semana despu?s del [place]. Si no tiene lilliam, puede visitarnos en la cl?caren acad?celio llamando al [phone]. - Realice tommy gladis de seguimiento con el cardi?logo Dr. Samano dentro de tommy semana despu?s del [place]. - Le guerrero recetado anticoagulantes, por lo que debe tener mucho cuidado con las ca?veronica. Si se y se golpea la darlin, acuda a urgencias inmediatamente. - Deje de beber alcohol por completo. - Le guerrero recetado pantoprazol para prevenir ?lceras g?stricas que pueden causar sangrado. [place] el medicamento 30 minutos antes de comer. - Regrese a urgencias o llame a los servicios m?dicos de emergencia si los s?ntomas regresan o empeoran. Prescriptions/Referrals Prescriptions/Med Rec: New aspirin 81 mg Tablet,Delayed Release (Dr/Ec) 81 mg PO QDAY 30 Days Qty: 30 3RF atorvastatin 80 mg tablet 80 mg PO HS 30 Days Qty: 30 3RF pantoprazole 40 mg Tablet,Delayed Release (Dr/Ec) 40 mg PO QDAY 30 Days Qty: 30 3RF metoprolol succinate 25 mg Tablet Extended Release 24 Hr 25 mg PO QDAY 30 Days Qty: 30 0RF ticagrelor [Brilinta] 90 mg Tablet 90 mg PO BID 30 Days Qty: 60 3RF Referrals: No Primary/Family,Physician [Primary Care Provider] - Jonel Samano MD [Physician] - Patient/Caregiver Discharge Instructions Education Materials: Coronary Stents, Alcoholism Resources, Alcohol Addiction, Eating Heart-Healthy Foods, Anatomy and Function of the Coronary Arteries Print Language: Slovenian Stand Alone Forms: Mckenzie Award Info., Patient Portal Info Letter Discharge Order Discharge Orders: Discharge (Routine); Ordered 11/23/24 Ordered By: Sallie Oliveira Quality Discharge Quality Measures VTE prophylaxis
== END 2024-11-23 13:41 | disposition home or self-care (01) | DRG 174 ==
LOC: SERX 08:11 → SERHOLD 09:02 → S2NX 13:41
PROVIDERS: Family Medicine; Internal Medicine Cardiovascular Disease; Student in an Organized Health Care Education/Training Program; Admitting Provider Student in an Organized Health Care Education/Training Program; Emergency Provider Emergency Medicine; Visit Provider Internal Medicine
PROC: 027034Z Dilation of Coronary Artery, One Artery with Drug-eluting Intraluminal Device, Percutaneous Approach (ICD-10-PCS; principal; 2024-11-22 08:30)
DX: I21.4 Non-ST elevation (NSTEMI) myocardial infarction (principal); R07.2 Precordial pain; K76.0 Fatty (change of) liver, not elsewhere classified; E78.5 Hyperlipidemia, unspecified; I25.10 Atherosclerotic heart disease of native coronary artery without angina pectoris
CPT/HCPCS: 36415; 71045; 71275; 74174; 80048; 80061; 80076; 83036; 83735; 83880; 84100; 84439; 84443; 84484; 85025; 85347; 85379; 85610; 85730; 93005; 93306; 96374; 96375; 99152; 99153; 99285; A4649; A4699; C1725; C1769; C1874; C1887; C1894; J0171; J0461; J1643; J1644; J1885; J2250; J2270; J2310; J2371; J2470; J3010; J3490; J7030; Q9967; A9270; J2305

== ENCOUNTER 2025-01-11 06:01 | Emergency (ER) | payer MEDICAID, SELFPAY ==
[2025-01-11 06:08] VITALS: BP 122/79; PULSE 75; RESP 18; TEMP 36.8; O2SAT 99
--- NOTE | 2025-01-11 06:20 | EDNOTE_ITS ---
<Statement entered by Laura Torres MD - 01/11/25 13:41> As co-signing physician, I was present and available for consult prn. I concur with the plan and care as documented by the midlevel provider. ED Eye Problem RME/HPI General Chief complaint: Eye Problems Stated complaint: FB IN RIGHT EYE Time Seen by Provider: 01/11/25 06:12 Source: patient Arrival date/time: 01/11/25 06:01 49-year-old male with a history of hyperlipidemia presents to the emergency room with a chief complaint of a foreign body in his right eye. 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 and believes there is something stuck in his right eye Mode of arrival: ambulatory Limitations: no limitations Related Data Previous Rx's ?Medication ?Instructions ?Recorded aspirin 81 mg tablet,delayed 81 mg PO QDAY 30 days #30 tabs 11/23/24 release atorvastatin 80 mg tablet 80 mg PO HS 30 days #30 tabs 11/23/24 pantoprazole 40 mg tablet,delayed 40 mg PO QDAY 30 day s #30 tabs 11/23/24 release ticagrelor 90 mg tablet (Brilinta) 90 mg PO BID 30 day s #60 tabs 11/23/24 ciprofloxacin HCl 0.3 % eye drops See Rx Instructions ophthalmic 01/11/25 (eye) .COMPLEX #5 mL Allergies Allergy/AdvReac Type Severity Reaction Status Date / Time No Known Allergies Allergy Verified 01/11/25 06:02 Review of Systems Review of Systems Systems Reviewed: All systems reviewed, normal except as documented Constitutional Constitutional: Reports system reviewed and no additional complaints, except as documented, Denies fatigue, Denies fever(s), Denies headache(s) and Denies weakness Eyes Eyes: Reports system reviewed and no additional complaints, except as documented, Denies blind spots, Reports blurry vision, Denies change in vision, Denies decreased night vision, Denies diplopia, Denies eye discharge, Denies dry eyes, Denies exophthalmos, Denies floaters, Reports irritation, Denies itchy eyes, Denies loss of peripheral vision, Denies loss of vision, Denies other visual disturbances, Reports eye pain, Denies photophobia, Denies requires corrective lenses, Denies seeing flashes, Denies spots in vision and Denies tunnel vision ENT Ears, Nose, Mouth, and Throat: Reports system reviewed and no additional complaints, except as documented, Denies otalgia, Denies headache(s), Denies nasal congestion, Denies throat swelling and Denies vertigo Cardiovascular Cardiovascular: Reports system reviewed and no additional complaints, except as documented, Denies chest pain, Denies dyspnea and Denies dyspnea on exertion Respiratory Respiratory: Reports system reviewed and no additional complaints, except as documented, Denies chest congestion, Denies cough, Denies dyspnea, Denies dyspnea on exertion and Denies wheezing Gastrointestinal Gastrointestinal: Reports system reviewed and no additional complaints, except as documented, Denies abdominal pain, Denies cramping, Denies nausea and Denies vomiting Genitourinary Genitourinary: Reports system reviewed and no additional complaints, except as documented, Denies dysuria and Denies hematuria Musculoskeletal Musculoskeletal: Reports system reviewed and no additional complaints, except as documented and Denies back pain Integumentary/Breasts Skin/Breast: Reports system reviewed and no additional complaints, except as documented and Denies wounds Neurologic Neurologic: Reports system reviewed and no additional complaints, except as documented, Denies confusion, Denies headache(s), Denies lack of coordination, Denies loss of vision, Denies vertigo and Denies weakness Psychiatric Psychiatric: Reports system reviewed and no additional complaints, except as documented, Denies anxiety, Denies confusion, Denies depression, Denies paranoia, Denies suicidal ideation and Denies tactile hallucinations Endocrine Endocrine: Reports system reviewed and no additional complaints, except as documented and Denies fatigue Hematologic/Lymphatic Hematologic/Lymphatic: Reports system reviewed and no additional complaints, except as documented and Denies lymphadenopathy Allergic/Immunologic Allergic/Immunologic: Reports system reviewed and no additional complaints, except as documented, Denies itchy eyes, Denies throat swelling, Denies urticaria and Denies wheezing ED Exam General Limitations: Present no limitations Course Quality Measures none Orders Category Date Time Status ED Eye Irrigation ONCE Care 01/11/25 06:17 Active Visual Acuity NOW Care 01/11/25 06:09 Active Buckley Lamp to Bedside X1 Care 01/11/25 06:17 Active Fluorescein Sodium [Bio-Joaquina] Med 01/11/25 06:17 Discontinued 1 mg LEFT EYE X1 ONE TETRACAINE Op Karen 0.5% [Pontocaine Op Karen 0.5%] Med 01/11/25 06:17 Discontinued 1 drop LEFT EYE X1 ONE Vital Signs Vital signs: Vital Signs Temperature 98.3 F 01/11/25 06:08 Pulse Rate 75 01/11/25 06:08 Respiratory Rate 18 01/11/25 06:08 Blood Pressure 122/79 01/11/25 06:08 Pulse Oximetry (%) 99 01/11/25 06:08 Oxygen Delivery Method Room Air 01/11/25 06:08 O2 saturation 98% within normal limits Eye MDM Narrative MDM Narrative:: 49-year-old male with a history of hyperlipidemia presents to the emergency room with a chief complaint of a foreign body in his right eye. 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 The patient denies any spots in his vision any loss of vision any loss of peripheral vision and states his only symptom is irritation, photophobia, and blurry vision. Patient states this occurred on Thursday and the patient has been using eyedrops to irrigate his eye. A Buckley lamp examination was completed and I was able to see a corneal abrasion on the right eye. There is no Maximino sign there is no rust ring there is no hyphema. I spoke to the patient and told him that he will need to follow-up with his primary care provider as a referral to an smoking pipe mounter may be indicated if these antibiotic drops do not work. Patient was discharged and educated to follow-up with primary care provider in the next 24 to 48 hours and return to the emergency room for any evidence of worsening signs or symptoms Patient data External records reviewed:: [facility] previous records Clinical information provided by:: patient Social determinants that could affect healthcare access:: none Patient has the following chronic illnesses:: Hyperlipidemia How is presenting disease/condition affected by chronic disease/condition?: uneffected by Evaluation data The following diagnostics were reviewed and interpreted by me:: lab results and radiology exam(s) Lab and/or radiology exams considered but not ordered:: Labs and radiology exams considered and ordered Interpretation Summary: N/A Medications / Prescriptions Medications or Prescriptions considered but not ordered:: Medication given Medication administrations:: Medication Administration History Discontinued Medications Fluorescein Sodium (Fluorescein Sod 1 Mg Strp) 1 mg LEFT EYE X1 ONE Stop: 01/11/25 06:18 Tetracaine HCl (Tetracaine Pf Op Karen 0.5% 4 Ml Drpette) 1 drop LEFT EYE X1 ONE Stop: 01/11/25 06:18 Medication given Consultations Consultation(s) initiated? (list below): No Diagnosis Eye Problem Differential Diagnosis: corneal abrasion, hyphema and corneal ulcer Most likely diagnosis given after review of the tests above:: Corneal abrasion Admission Indicated Admission indicated?: not indicated Admission Request Was there a request for admission?: No Disposition Plan Disposition Plan: Discharge Discharge Attestation Discharge Attestation: The patient and all family members were given an opportunity to ask questions and understood the discharge instructions. Discharge instructions specifically effects, indications for sooner follow up or return to the emergency department, and the expected course of current diagnosis. Patient condition: Stable Discharge Plan Plan Patient Disposition: HOME (Self Care) Discharge Disposition comment: Stable Prescriptions/Referrals Prescriptions/Med Rec: New ciprofloxacin HCl 0.3 % drops See Rx Instructions .ROUTE .COMPLEX Qty: 5 0RF Rx Instructions: put 1-2 drps in affected eye(s) every 2hr up to 8 times/day x2days; then 4 times/day x5days No Action aspirin 81 mg Tablet,Delayed Release (Dr/Ec) 81 mg PO QDAY 30 Days Qty: 30 3RF atorvastatin 80 mg tablet 80 mg PO HS 30 Days Qty: 30 3RF pantoprazole 40 mg Tablet,Delayed Release (Dr/Ec) 40 mg PO QDAY 30 Days Qty: 30 3RF ticagrelor [Brilinta] 90 mg Tablet 90 mg PO BID 30 Days Qty: 60 3RF Problem List Clinical Impression: Corneal abrasion Patient/Caregiver Discharge Instructions Education Materials: Corneal Injury, ED Corneal Abrasion Additional Instructions: Please follow-up with your primary care provider in the next 24 to 48 hours Your eye examination showed a corneal abrasion. Please follow-up with your primary care provider as a referral to an smoking pipe mounter may be indicated if your signs and symptoms do not get better with antibiotics. For any evidence of worsening signs or symptoms return to the emergency room immediately Print Language: Armenian Stand Alone Forms: Mckenzie Award Info., Patient Portal Info Letter PA/FRED Supervising Physician ALYSIA/FRED Supervising Physician: Dr. TORRES
[2025-01-11] MEDS: TETRACAINE PF OP SOL 0.5% 4 ML DRPETTE 1 DROP LEFT EYE (06:51)
[2025-01-11] MEDS: FLUORESCEIN SOD 1 MG STRP LEFT EYE (06:51)
== END 2025-01-11 06:50 | disposition home or self-care (01) ==
LOC: SERX 07:32
PROVIDERS: Emergency Provider Nurse Practitioner Family
DX: S05.01XA Injury of conjunctiva and corneal abrasion without foreign body, right eye, initial encounter (principal); X58.XXXA Exposure to other specified factors, initial encounter
CPT/HCPCS: 99283